=== PATIENT | female | born 1975 | race Caucasian/White ===

== ENCOUNTER 2020-04-05 08:33 | Emergency (ER) | payer MEDICAID ==
[~2020-04-05] VITALS: Ht 165.1 cm; Wt 71.8 kg
[~2020-04-05 08:33] MED LIST: NO HOME MEDS
[2020-04-05 08:52] VITALS: BP 132/75
[2020-04-05] MEDS ORDERED: HYDR25CA PO (09:28)
[2020-04-05] MEDS ORDERED: TRIA15CR61 TP (09:28)
[2020-04-05] MEDS ORDERED: acetaminophen 325mg tablet PO ONE (09:35)
[2020-04-05] MEDS ORDERED: DOXY100C77 PO (23:53)
[2020-04-05] MEDS ORDERED: CEPH-572 PO (23:53)
== END 2020-04-05 10:10 | disposition home or self-care (01) ==
LOC: ER 08:33
DX: L30.8 Other specified dermatitis (principal); R21 Rash and other nonspecific skin eruption; F15.90 Other stimulant use, unspecified, uncomplicated; Z72.89 Other problems related to lifestyle
CPT/HCPCS: 99283

== ENCOUNTER 2020-04-05 21:01 | Emergency (ER) | payer MEDICAID ==
[~2020-04-05] VITALS: Ht 165.1 cm; Wt 71.8 kg
[~2020-04-05 21:01] MED LIST changes: +HYDR25CA PO; +TRIA15CR61 TP
[2020-04-05 21:05] VITALS: BP 152/83
[2020-04-05] MEDS ORDERED: CefTRIAXone 2gm/D5W 50ml 50 ML IV ONE (21:45)
[2020-04-05] MEDS ORDERED: normal saline 1000ML IV soln IV ONE (21:45)
[2020-04-05] MEDS ORDERED: vancomycin/NS 1 GM ADD-VANTAGE 250 ML IV ONE (21:45)
[2020-04-05] MEDS ORDERED: morphine 4 MG/ML inj SYRINge IV ONE (21:50)
--- NOTE | 2020-04-05 22:49 | NUR ---
I went in to get blood and she refuses me to look in her neck so I told Tom that he will need to get blood.
--- NOTE | 2020-04-05 23:02 | NUR ---
Pt has long history of IV drug abuse and available IV access is scarred and cannot be accessed for medical IV use with available resources at this time. MD and charge nurse notified.
[2020-04-05 23:37] LABS: BASOPHILS # (AUTO) 0.1 X10'3 (0-0.2); BASOPHILS % (AUTO) 0.8 % (0-1); EOSINOPHILS % (AUTO) 0.3 % (0-6)
[2020-04-05 23:39] LABS: HEMATOCRIT 33.7 % (35.0-45.0); HEMOGLOBIN 11.2 g/dl (12.0-16.0); LYMPHOCYTES # (AUTO) 2.4 X10'3 (1.1-4.8); LYMPHOCYTES % (AUTO) 25.4 % (21-51); MEAN CORPUSCULAR HEMOGLOBIN 28.1 PG (27.0-31.0); MEAN CORPUSCULAR HGB CONC 33.3 g/dL (33.0-36.5); MEAN CORPUSCULAR VOLUME 84.3 FL (78-98); MEAN PLATELET VOLUME 9.1 FL (7.4-10.4); MONOCYTES # (AUTO) 1.1 X10'3 (0-0.9); MONOCYTES % (AUTO) 11.1 % (2-12); NEUTROPHILS % (AUTO) 62.4 % (42-75); PLATELET COUNT 226 X10'3 (140-440); RED CELL DISTRIBUTION WIDTH 14.3 % (11.5-14.5); WHITE BLOOD COUNT 9.7 X10'3 (4.5-11.0)
[2020-04-05 23:52] LABS: ALANINE AMINOTRANSFERASE 21 U/L (12-78); ALBUMIN 2.5 G/DL (3.4-5.0); ALBUMIN/GLOBULIN RATIO 0.6 (1.1-1.5); ALKALINE PHOSPHATASE 119 IU/L (46-116); ANION GAP 11 (8-16); ASPARTATE AMINO TRANSFERASE 22 U/L (10-37); BILIRUBIN,TOTAL 0.2 MG/DL (0.1-1.0); BLOOD UREA NITROGEN 7 MG/DL (7-18); BUN/CREATININE RATIO 6.8 (6.6-38.0); CALCIUM 7.6 MG/DL (8.5-10.1); CHLORIDE 103 MMOL/L (99-107); CREATININE 1.03 MG/DL (0.40-0.90); GLUCOSE 110 MG/DL (70-104); POTASSIUM 3.1 MMOL/L (3.5-5.1); SODIUM 137 MMOL/L (135-145); TOTAL CARBON DIOXIDE 22.8 MMOL/L (24-32); TOTAL PROTEIN 6.8 G/DL (6.4-8.2); eGFR 58 ML/MIN
[2020-04-05] MEDS ORDERED: CEPH-572 PO (23:53)
[2020-04-05] MEDS ORDERED: DOXY100C77 PO (23:53)
[2020-04-06] MEDS ORDERED: iohexol 300mg/ml 100ml inj. ONE (00:03)
--- NOTE | 2020-04-06 00:06 | NUR ---
MD able to draw blood from groin area for cultures and labs. Pt now going to CT for scan.
--- NOTE | 2020-04-06 00:16 | NUR ---
IV in RT shoulder infiltrated. Unable to use for CT or medications. PA Mann notified.
[2020-04-06 01:08] LABS: URINE HCG NEGATIVE (NEG)
[2020-04-06 01:09] LABS: CLARITY,URINE CLEAR (Clear); COLOR,URINE YELLOW (Yellow); GLUCOSE, URINE NEGATIVE (Neg); KETONES,URINE NEGATIVE (Neg); LEUKOCYTE ESTERASE ,URINE TRACE (Neg); NITRITES, URINE NEGATIVE (Neg); OCCULT BLOOD,URINE SMALL (Neg); PROTEIN,URINE NEGATIVE (Neg); UROBILINOGEN,URINE 0.2 E.U/dL (0.2-1.0)
[2020-04-06 01:16] LABS: UA COLLECTION TYPE CLN CATCH MIDSTREAM
[2020-04-06 01:17] LABS: BACTERIA,URINE FEW /HPF (Neg); RBC,URINE 0-2 /HPF (0-2); SQUAMOUS EPITHELIAL CELL,UR FEW /LPF (FEW)
--- NOTE | 2020-04-06 01:32 | NUR ---
Orders for IV ABX cancelled. Unable to obtain new IV access. Only 1 liter of ordered 2 L bolus infused before IV infiltrated.
== END 2020-04-06 02:11 | disposition home or self-care (01) ==
LOC: ER 21:02
DX: A46 Erysipelas (principal); F15.90 Other stimulant use, unspecified, uncomplicated; Z79.2 Long term (current) use of antibiotics; Z79.899 Other long term (current) drug therapy
CPT/HCPCS: 36415; 73700; 80053; 81001; 81025; 83605; 84145; 85025; 87040; 87088; 99284; J7030; Q9967

== ENCOUNTER 2022-01-10 00:48 | Emergency (ER) | payer MEDICAID ==
[~2022-01-10] VITALS: Ht 170.2 cm; Wt 80.0 kg
[~2022-01-10 00:48] MED LIST changes: -TRIA15CR61 TP
[2022-01-10] MEDS ORDERED: ketorolac trometh inj. 60 MG/2 ML VIAL IM ONE (01:35)
[2022-01-10 03:04] VITALS: BP 128/76
== END 2022-01-10 03:05 | disposition home or self-care (01) ==
LOC: ER 00:49
DX: S86.111A Strain of other muscle(s) and tendon(s) of posterior muscle group at lower leg level, right leg, initial encounter (principal); I10 Essential (primary) hypertension; F15.90 Other stimulant use, unspecified, uncomplicated; G89.29 Other chronic pain; M54.9 Dorsalgia, unspecified; Z86.19 Personal history of other infectious and parasitic diseases; Z72.89 Other problems related to lifestyle; Z79.899 Other long term (current) drug therapy; X50.1XXA Overexertion from prolonged static or awkward postures, initial encounter; Y93.41 Activity, dancing; Y92.89 Other specified places as the place of occurrence of the external cause; Y99.8 Other external cause status
CPT/HCPCS: 73590; 73600; 96372; 99284; J1885